=== PATIENT | female | born 1960 | race African-American/Black ===

== ENCOUNTER 2017-02-23 11:41 | Emergency (ER) | payer SELFPAY ==
[~2017-02-23] VITALS: Ht 157.5 cm; Wt 70.3 kg
[2017-02-23 11:54] VITALS: BP 124/78
--- NOTE | 2017-02-23 13:24 | RAD ---
4 view bilateral knee radiographs 02/23/2017 Clinical history: Chronic bilateral knee pain. AP, lateral, oblique and sunrise digital radiographs of both knees were obtained. No fracture or dislocation of either knee is seen. Moderate degenerative changes are seen involving all 3 compartments of both knees. These consist of varying degrees of joint compartment narrowing, subchondral sclerosis and associated osteophyte formation. Impression: Moderate degenerative changes are seen involving both knees as outlined above. No acute osseous abnormality is seen.
[2017-02-23] MEDS ORDERED: PRED-220 PO (13:56)
[2017-02-23] MEDS ORDERED: CETI-282 PO (13:56)
[2017-02-23] MEDS ORDERED: KETO5DRO3 EACHEYE (13:56)
--- NOTE | 2017-02-23 13:57 | PHYS DOC ---
Past Medical History Past Medical History: No Pertinent History Past Surgical History: Other Additional Past Surgical Histo: bilat eyes, foot Alcohol Use: None Drug Use: None Adult General Chief Complaint Chief Complaint: LOWER EXT PAIN HPI HPI Patient is a 56 year old female with no significant medical history who presents with bilateral knee pain that has been going on for 3 months, no known injury. 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 Patient's also complaining of seasonal allergy symptoms including running nose and eye itching for weeks. Patient denies any fever. Review of Systems Review of Systems Constitutional: Denies fever or chills [] Eyes: Denies change in visual acuity, redness, or eye pain [] HENT: Seasonal allergy symptoms including nasal congestion Respiratory: Denies cough or shortness of breath [] Cardiovascular: No additional information not addressed in HPI [] GI: Denies abdominal pain, nausea, vomiting, bloody stools or diarrhea [] : Denies dysuria or hematuria [] Musculoskeletal: Bilateral knee pain Integument: Denies rash or skin lesions [] Neurologic: Denies headache, focal weakness or sensory changes [] Endocrine: Denies polyuria or polydipsia [] Allergies Allergies Allergies Coded Allergies Type Severity Reaction Last Updated Verified No Known Drug Allergies 02/23/17 No Physical Exam Physical Exam Constitutional: Well developed, well nourished, no acute distress, non-toxic appearance. [] HENT: Normocephalic, atraumatic, bilateral external ears normal, oropharynx moist, no oral exudates, nose normal. [] Eyes: PERRLA, EOMI, conjunctiva normal, no discharge. [] Neck: Normal range of motion, no tenderness, supple, no stridor. [] Cardiovascular:Heart rate regular rhythm, no murmur [] Lungs & Thorax: Bilateral breath sounds clear to auscultation [] Abdomen: Bowel sounds normal, soft, no tenderness, no masses, no pulsatile masses. [] Skin: Warm, dry, no erythema, no rash. [] Back: No tenderness, no CVA tenderness. [] Extremities: Bilateral knees appears normal. Full range of motion to bilateral knees with crepitus bilaterally. Negative Vladimir sign and negative Efrem's sign negative anterior-posterior drawer sign to bilateral knees. +2 bilateral pedal pulses. Neurologic: Alert and oriented X 3, normal motor function, normal sensory function, no focal deficits noted. [] Psychologic: Affect normal, judgement normal, mood normal. [] Current Patient Data Vital Signs Vital Signs Date Time Temp Pulse Resp B/P (MAP) Pulse Ox O2 Delivery O2 Flow Rate FiO2 02/23/17 11:54 98.4 84 20 96 Room Air 98.4 EKG EKG [] Radiology/Procedures Radiology/Procedures [] Course & Med Decision Making Course & Med Decision Making Pertinent Labs and Imaging studies reviewed. (See chart for details) Patient is in the ED with complaints of bilateral knee pain and seasonal allergies. Bilateral knee x-rays interpreted by radiologist were negative for any acute findings but noted for arthritis. Patient was discharged with naproxen and Medrol Dosepak as well as Zaditor and Zyrtec for her seasonal allergies. Dragon Disclaimer Dragon Disclaimer This electronic medical record was generated, in whole or in part, using a voice recognition dictation system. Departure Departure Impression: Primary Impression: Right knee DJD Additional Impressions: Left knee DJD Seasonal allergies Disposition: 01 HOME, SELF-CARE Condition: STABLE Referrals: NO PCP (PCP) FRANK AYALA MD Call her office today and set up a follow-up appointment Patient Instructions: Arthritis, Degenerative-Brief Additional Instructions: You were seen for bilateral knee pain and seasonal allergies. We provided you an orthopedic doctor. Please call her office today and get a follow-up appointment. We also provided you a primary care doctor's list call one of the doctor and set up a follow-up appointment.. Scripts Diclofenac Sodium (DICLOFENAC SODIUM) 75 Mg Tablet.dr 1 TAB PO BID, #60 TAB 1 Refill Prov: KARTIK JOHNSNO APRN 02/23/17 Prednisone (PREDNISONE) 10 Mg Tablet 10 MG PO UD for PREDNISONE TAPER, #39 TAB 0 Refills Take 3 tablets by mouth twice a day for 3 days, then take 2 tablets by mouth twice a day for 3 days, then take 1 tablet by mouth twice a day for 3 days, then take 1 tablet by mouth daily x 3 days, then stop. Prov: KARTIK JOHNSON APRN 02/23/17 Cetirizine HCl (24Hour Allergy) 10 Mg Tablet 10 MG PO DAILY, #30 TAB Prov: KARTIK JOHNSON APRN 02/23/17 Ketotifen Fumarate (ZADITOR) 5 Ml Drops 1 DROP EACHEYE BID, #5 ML 1 Refill Prov: GUTIERREZKARTIK HAY F[employer]IBLE BABYSITTER 02/23/17 Problem Qualifiers Primary Impression: Right knee DJD Osteoarthritis type: unspecified Qualified Codes: M17.11 - Unilateral primary osteoarthritis, right knee Additional Impressions: Left knee DJD Osteoarthritis type: unspecified Qualified Codes: M17.12 - Unilateral primary osteoarthritis, left knee Seasonal allergies Chronicity: chronic Allergic rhinitis trigger: unspecified Qualified Codes : J30.2 - Other seasonal allergic rhinitis ELIZABETHKARTIK FLEXIBLE BABYSITTER Feb 23, 2017 13:57
[2017-02-23] MEDS ORDERED: DICL75TA PO (13:59)
== END 2017-02-23 14:00 | disposition home or self-care (01) ==
LOC: ER 11:41
DX: M17.11 Unilateral primary osteoarthritis, right knee (principal); M17.12 Unilateral primary osteoarthritis, left knee; J30.2 Other seasonal allergic rhinitis; Z98.890 Other specified postprocedural states
CPT/HCPCS: 73564; 99284